=== PATIENT | male | born 1985 | race African-American/Black ===

== ENCOUNTER 2018-11-28 01:17 | Emergency (ER) | payer OTHER | END 2018-11-28 03:25 | LOC: E/R 01:17 | DX: S52.122A Displaced fracture of head of left radius, initial encounter for closed fracture (principal); S62.002A Unspecified fracture of navicular [scaphoid] bone of left wrist, initial encounter for closed fracture; R40.2142 Coma scale, eyes open, spontaneous, at arrival to emergency department; R40.2362 Coma scale, best motor response, obeys commands, at arrival to emergency department; R40.2242 Coma scale, best verbal response, confused conversation, at arrival to emergency department; X58.XXXA Exposure to other specified factors, initial encounter; Y92.9 Unspecified place or not applicable | CPT/HCPCS: 29105; 73030; 73080-LT; 73110-LT; 99283-25 ==